=== PATIENT | female | born 2005 ===

== ENCOUNTER 2024-07-14 07:04 | Outpatient (REF) | payer BC, SELFPAY ==
--- NOTE | ~2024-07-14 | US_ITS ---
EXAMINATION: US ABDOMEN COMPLETE CLINICAL INFORMATION: Elevated liver function tests.. COMPARISON: None available. TECHNIQUE: Real-time imaging of the abdominal viscera using grayscale and color Doppler technique. FINDINGS: PANCREAS: No peripancreatic fluid collections. ABDOMINAL AORTA: The proximal, mid, and distal segments are normal in caliber. INFERIOR VENA CAVA: Visualized portions are normal. LIVER: Liver measures 19 cm. Increased echotexture. No nodular surface. No gross solid or cystic lesion detected by the chief medical technologist. No intrahepatic biliary ductal dilatation. GALLBLADDER: Fluid-filled. No pericholecystic fluid collection or gallbladder wall thickening. COMMON BILE DUCT: 3 mm. RIGHT KIDNEY: 13 cm. Normal renal cortical thickness. Normal echotexture. No solid or cystic lesion. No hydronephrosis. Normal flow on color Doppler interrogation of the renal hilum. LEFT KIDNEY: 13 cm. Normal renal cortical thickness. Normal echotexture. No solid or cystic lesion. No hydronephrosis. Normal flow on color Doppler interrogation of the renal hilum. SPLEEN: 12 cm.. FREE FLUID: None. US/US abdomen complete IMPRESSION: Hepatomegaly, mild to moderate and steatosis. Borderline normal size spleen. No cholelithiasis. No hydronephrosis. No ascites. Electronically signed by: Cayetano Hamilton MD 07/14/2024 08:59 AM EST
== END 2024-07-14 07:05 | disposition home or self-care (01) ==
LOC: HO.UMASIMG 07:04
PROVIDERS: Visit Provider Nurse Practitioner
DX: R94.5 Abnormal results of liver function studies (principal)
CPT/HCPCS: 76700

== ENCOUNTER → 2024-07-14 08:15 | Outpatient (BNV) | payer BC, SELFPAY | PROVIDERS: Visit Provider Radiology Diagnostic Radiology | DX: R16.0 Hepatomegaly, not elsewhere classified (principal) | CPT/HCPCS: 76700 ==